=== PATIENT | male | born 1990 | race Caucasian/White ===

== ENCOUNTER 2017-06-07 00:20 | Emergency (ER) | payer SELFPAY ==
[~2017-06-07] VITALS: Ht 172.7 cm; Wt 65.8 kg
[2017-06-07 00:40] VITALS: BP 140/81
== END 2017-06-07 01:01 | disposition home or self-care (01) ==
LOC: ER 00:24
DX: S00.33XA Contusion of nose, initial encounter (principal); Z88.8 Allergy status to other drugs, medicaments and biological substances; W22.8XXA Striking against or struck by other objects, initial encounter; Y93.89 Activity, other specified; Y92.89 Other specified places as the place of occurrence of the external cause; Y99.8 Other external cause status
CPT/HCPCS: 99282; A4606; Z7610